=== PATIENT | female | born 2000 | race Two or more races ===

== ENCOUNTER 2024-02-09 10:55 | Emergency (ER) | payer OTHER ==
[2024-02-09 11:04] VITALS: BP 138/83; PULSE 70; RESP 18; TEMP 97.8; BMI 44.9
[2024-02-09] MEDS ORDERED: ACETAMINOPHEN INJECTION 100 ML IVPB ONE (13:04)
[2024-02-09] MEDS: SODIUM CHLORIDE 0.9% 500 ML INFUS.BAG IV ONE (13:06)
[2024-02-09] MEDS: ACETAMINOPHEN 1000 MG/100 ML BAG IVPB ONE (13:07)
[2024-02-09 13:18] LABS: BASO % 0.6 % (0-2.0); HEMATOCRIT 33.1 % (32.4-45.2); HEMOGLOBIN 10.8 GM/dL (10.7-15.3); MCH 26.3 pg (25.7-33.7); MCHC 32.5 g/dl (32.0-36.0); MEAN PLT VOLUME 7.6 fl (7.5-11.1); MONO % 8.7 % (3.8-10.2); NEUT % 69.7 % (42.8-82.8); PLATELET COUNT 448 10^3/uL (134-434); RBC 4.09 M/mm3 (3.60-5.2); RDW 15.4 % (11.6-15.6); WHITE BLOOD COUNT 8.3 K/mm3 (4.0-10.0)
[2024-02-09 13:43] LABS: POTASSIUM 4.6 mmol/L (3.5-5.1)
[2024-02-09 13:45] LABS: CALCIUM 8.9 mg/dL (8.5-10.1)
[2024-02-09 13:46] LABS: ALBUMIN 3.3 g/dl (3.4-5.0); BLOOD UREA NITROGEN 17.8 mg/dL (7-18)
[2024-02-09 13:49] LABS: CREATININE 0.7 mg/dL (0.55-1.3)
[2024-02-09 13:51] LABS: BILIRUBIN,TOTAL 0.3 mg/dL (0.2-1); TOT PROT 7.1 g/dl (6.4-8.2)
== END 2024-02-09 13:56 | disposition left against medical advice (07) ==
LOC: JER 10:55
PROC: 3E033NZ Introduction of Analgesics, Hypnotics, Sedatives into Peripheral Vein, Percutaneous Approach (ICD-10-PCS; principal; 2024-02-09)
DX: N93.9 Abnormal uterine and vaginal bleeding, unspecified (principal); R10.30 Lower abdominal pain, unspecified
CPT/HCPCS: 36415; 80053; 84703; 85025; 86850; 86900; 86901; 99284-25; J0131

== ENCOUNTER 2024-05-05 10:43 | Emergency (ER) | payer OTHER ==
[2024-05-05 10:52] VITALS: BP 145/97; PULSE 92; RESP 21; TEMP 98.3; BMI 52.7
== END 2024-05-05 13:57 | disposition home or self-care (01) ==
LOC: JER 10:43
DX: M25.571 Pain in right ankle and joints of right foot (principal); M25.572 Pain in left ankle and joints of left foot; G89.29 Other chronic pain; M25.471 Effusion, right ankle; M25.472 Effusion, left ankle
CPT/HCPCS: 73610-TC-LT-FY; 73610-TC-RT-FY; 73630-TC-LT; 73630-TC-RT-FY; 99283-25